=== PATIENT | female | born 1980 | race Caucasian/White ===

== ENCOUNTER 2016-04-28 17:50 | Emergency (ER) | payer MEDICAID | END 2016-04-28 20:28 | disposition home or self-care (01) | LOC: D.ER 17:50 | DX: B34.9 Viral infection, unspecified (principal); F17.200 Nicotine dependence, unspecified, uncomplicated ==

== ENCOUNTER 2016-09-07 20:37 | Emergency (ER) | payer MEDICAID | END 2016-09-07 21:30 | disposition home or self-care (01) | LOC: D.ER 20:37 | DX: S90.812A Abrasion, left foot, initial encounter (principal); W26.9XXA Contact with unspecified sharp object(s), initial encounter; Y93.89 Activity, other specified; Y92.89 Other specified places as the place of occurrence of the external cause; F25.9 Schizoaffective disorder, unspecified; F17.200 Nicotine dependence, unspecified, uncomplicated ==

== ENCOUNTER 2016-10-17 23:00 | Emergency (ER) | payer MEDICAID ==
[2016-10-18 00:10] LABS: BASOPHILS 0.4 % (0-2); EOSINOPHILS 3.1 % (0-7); HEMATOCRIT 36.6 % (36.0-48.0); HEMOGLOBIN 12.4 g/dL (12-16); IMMATURE GRANULOCYTES 0.2 % (0-5); LYMPHOCYTES 39.3 % (15-50); MCHC 33.9 g/dL (31.0-37.0); MCV 94.3 fL (80.0-100.0); MEAN PLATELET VOLUME 9.5 fL (7.4-10.4); MONOCYTES 9.5 % (2-11); NEUTROPHILS 47.5 % (40-80); RBC 3.88 10x6/uL (4.00-5.40); RDW 14.2 % (11.5-14.5); WBC 11.6 10x3/uL (4.8-10.8)
[2016-10-18 00:11] LABS: PLATELET COUNT 272 10x3/uL (130-400)
[2016-10-18 00:33] LABS: ALBUMIN 3.1 g/dL (3.4-5.0); ALKALINE PHOSPHATASE 58 U/L (46-116); ALT (SGPT) 20 U/L (10-68); CALC OSMOLALITY 271 mosm/kg (275-300); CALCIUM 8.9 mg/dL (8.5-10.1); CARBON DIOXIDE 29.8 mmol/L (21.0-32.0); CHLORIDE - SERUM 103 mmol/L (98-107); CREATININE - SERUM 0.9 mg/dL (0.6-1.3); GLUCOSE 81 mg/dL (74-106); POTASSIUM - SERUM 3.9 mmol/L (3.5-5.1); PROTEIN - SERUM 7.2 g/dL (6.4-8.2); SODIUM 137 mmol/L (136-145); UREA NITROGEN 9 mg/dL (7-18); eGFR NON AFRICAN AMERICAN 75 mL/min (90-120)
[2016-10-18 00:39] LABS: CKMB 0.7 U/L (0.0-3.6); CREATINE KINASE 87 UL (21-215); TROPONIN-I < 0.017 ng/mL (0.000-0.060)
== END 2016-10-18 01:09 | disposition home or self-care (01) ==
LOC: D.ER 23:00
PROVIDERS: Family Medicine
DX: R09.1 Pleurisy (principal); J20.9 Acute bronchitis, unspecified; F25.9 Schizoaffective disorder, unspecified; F17.200 Nicotine dependence, unspecified, uncomplicated

== ENCOUNTER 2017-08-02 11:14 | Emergency (ER) | payer MEDICAID | END 2017-08-02 12:16 | disposition home or self-care (01) | LOC: D.ER 11:14 | DX: J02.9 Acute pharyngitis, unspecified (principal) ==